=== PATIENT | male | born 1980 | race Two or more races ===

== ENCOUNTER 2017-07-26 13:33 | Emergency (ER) | payer SELFPAY ==
[~2017-07-26] VITALS: Ht 175.3 cm; Wt 67.1 kg
[2017-07-26 13:37] VITALS: BP 122/56
[2017-07-26] MEDS ORDERED: IBUPROFEN600 MG ORAL (14:20)
[2017-07-26 14:45] VITALS: BP 106/57
--- NOTE | 2017-07-26 17:26 | Emergency Room Report ---
History of Present Illness General Chief Complaint: Pain Source: Patient Present Illness HPI The patient is a 36-year-old male presenting for right knee pain. He states that the pain has been intermittent for the past month. Pain is a 6 out of 10 dull ache and does not radiate from the knee. Worse with movement. Better with rest. Pain has began to worsen after starting cycling. He denies other symptoms including rash, fever, chills, numbness Allergies: Coded Allergies: No Known Allergies (Unverified , 07/26/17) Patient History Past Medical History: see triage record Pertinent Family History: none Reviewed Nursing Documentation: PMH: Agreed; PSxH: Agreed Nursing Documentation-PMH Past Medical History: No Stated History Review of Systems All Other Systems: negative except mentioned in HPI Physical Exam Vital Signs Date Time Temp Pulse Resp B/P (MAP) Pulse Ox O2 Delivery O2 Flow Rate FiO2 07/26/17 13:37 18 122/56 97 Room Air 07/26/17 13:37 97.9 56 97.9 Sp02 EP Interpretation: reviewed, normal General Appearance: no apparent distress, alert, GCS 15, non-toxic Head: normocephalic, atraumatic Musculoskeletal: normal inspection, back normal, gait/station normal, normal range of motion, no calf tenderness, tender - lateral quad Neurologic: alert, oriented x3, responsive, motor strength/tone normal, sensory intact, speech normal Psychiatric: judgement/insight normal, memory normal, mood/affect normal, no suicidal/homicidal ideation Skin: normal color, no rash, warm/dry, well hydrated Procedures Splinting Splinting : Consent: Verbal Location: R knee Pre-Made Type: DANIEL wrap Pre-Proc Neuro Vasc Exam: normal Post-Proc Neuro Vasc Exam: normal Patient Tolerated: Well Complications: None Medical Decision Making PA Attestation Dr. Mendez is my supervising physician. Patient management was discussed with my supervising physician Diagnostic Impression: Primary Impression: Knee sprain Qualified Codes: S83.91XA - Sprain of unspecified site of right knee, initial encounter ER Course The patient is a 36-year-old male presenting for right knee pain Ddx considered include but not limited to sprain/strain, fracture, contusion PE: NAD Normal gait Right knee: No edema. No erythema. Full active range of motion is intact. No laxity. There is tenderness to palpation over the lateral quadriceps Daniel wrap is placed over the right knee Patient is given prescription for Motrin and Rice instruction. ER precautions are given Last Vital Signs Date Time Temp Pulse Resp B/P (MAP) Pulse Ox O2 Delivery O2 Flow Rate FiO2 07/26/17 14:45 98.0 51 16 106/57 98 07/26/17 13:37 Room Air Status: improved Disposition: HOME, SELF-CARE Condition: Improved Scripts Ibuprofen* (MOTRIN*) 600 Mg Tablet 600 MG ORAL Q8H PRN for For Pain, #30 TAB 0 Refills Prov: SERGIO CARCAMO 07/26/17 Referrals: NOT CHOSEN [facility]/,REFERRING (PCP) Patient Instructions: EDUARDO for Routine Care of Injuries, Knee Sprain Additional Instructions: I discussed my findings with the patient. All questions and concerns have been answered. Treatment and medication compliance have been addressed. I advised the patient that they need to follow up with PMD in 3-5 days. Return to ED if pain remains or worsens, numbness or tingling occurs, new rash is noticed, fever is noticed, or if needed for any reason. Patient verbalized understanding of discharge instructions. SERGIO CARCAMO July 26, 2017 17:26
== END 2017-07-26 14:55 | disposition home or self-care (01) ==
LOC: EMR 14:18
DX: S83.91XA Sprain of unspecified site of right knee, initial encounter (principal); X58.XXXA Exposure to other specified factors, initial encounter; Y92.9 Unspecified place or not applicable
CPT/HCPCS: 99283